=== PATIENT | male | born 1975 | race American Indian/Alaskan Native ===

== ENCOUNTER 2020-08-19 08:00 | Emergency (ER) | payer SELFPAY ==
--- NOTE | 2020-08-19 08:18 | Event Note ---
ED Screening Note Date of service: 08/19/20 Time: 08:14 ED Screening Note: This initial assessment/diagnostic orders/clinical plan/treatment(s) is/are subject to change based on patients health status, clinical progression and re- assessment by fellow clinical providers in the ED. Further treatment and workup at subsequent clinical providers discretion. Patient/guardian urged not to elope from the ED as their condition may be serious if not clinically assessed and managed. Initial orders include: Pt states he fell 2 weeks climbing over a fence. C/o of ongoing left arm pain. Pain worsens at night and with the cold weather. He also reports chest pain off and on x 2 weeks. He has hx of HTN he stopped taking BP meds 2 years ago. Resp easy and unlabored in no acute distress.
[2020-08-19 08:51] LABS: Basophils % (Auto) 0.4 % (0.0-1.8); Eosinophils # (Auto) 0.2 K/mm3 (0.0-0.4); Eosinophils % (Auto) 2.6 % (0.0-4.3); Lymphocytes % (Auto) 34.5 % (13.4-35.0); Mean Corpuscular HGB Conc 31 % (32-34); Mean Corpuscular Volume 86 fl (84-94); Monocytes # (Auto) 0.7 K/mm3 (0.0-0.8); Red Blood Count 6.07 M/mm3 (3.65-5.03); Red Cell Distribution Width 17.2 % (13.2-15.2)
--- NOTE | 2020-08-19 09:16 | Emergency Department Report ---
ED Chest Pain HPI - General Chief Complaint: Fall Stated Complaint: LFT SIDE PAIN Time Seen by Provider: 08/19/20 08:43 Source: patient Mode of arrival: Ambulatory Limitations: Physical Limitation - History of Present Illness Initial Comments: This is a 44-year-old -[place] male presents to the emergency department with complaint of left shoulder and upper arm pain that has been going on for the past 2 weeks since the patient had a fall. He was climbing over a fence and fell directly onto his left shoulder and arm. He says that he did not have any pain at that time but he began having severe throbbing pain 2 days later that has continued since. More recently he says that the pain radiates down the arm and recently he has been feeling some left upper leg pain as well. The patient has some difficulty moving the left arm secondary to pain. He denies any numbness or paresthesias, swelling, skin color change. The patient also says t hat he has been having some intermittent chest pains that he feels is radiation from his shoulder. He denies any current chest pain at the time of my examination. He has not taken anything for symptoms prior to presentation. He has a history of hypertension but admits to medication noncompliance as he did not like the way the medications made him feel. He does not have a primary care physician. He is an occasional marijuana smoker but denies any tobacco use. No recent travel or sick contacts at home. He denies any fever, nausea, vomiting, back pain, shortness of breath, headache, neck pain. Severity scale (0 -10): 10 - Related Data Previous Rx's Medication Instructions Recorded Last Taken Type HYDROcodone/APAP 5-325 [[place] 1 each PO Q6HR PRN #10 tablet 08/19/20 Unknown Rx 5/325] Allergies Allergy/AdvReac Type Severity Reaction Status Date / Time Penicillins Allergy Unknown Verified 08/19/20 08:03 Heart Score - HEART Score History: Slightly suspicious EKG: Normal Age: < 45 Risk factors: 1-2 risk factors Troponin: < normal limit HEART Score: 1 - Critical Actions Critical Actions: 0-3 pts:0.9-1.7%risk of adverse cardiac event.Candidate for discharge ED Review of Systems ROS: Stated complaint: LFT SIDE PAIN Other details as noted in HPI Comment: All other systems reviewed and negative Constitutional: denies: chills, fever Eyes: denies: eye pain, vision change ENT: denies: ear pain, throat pain Respiratory: denies: cough, shortness of breath Cardiovascular: chest pain (Intermittent, currently resolved). denies: edema Gastrointestinal: denies: abdominal pain, vomiting Genitourinary: denies: dysuria, discharge Musculoskeletal: arthralgia, myalgia. denies: back pain, joint swelling Skin: denies: rash, lesions Neurological: denies: numbness, paresthesias ED Past Medical Hx - Past Medical History Previous Medical History?: Yes Hx Hypertension: Yes (non compliant) - Surgical History Past Surgical History?: Yes Hx Cholecystectomy: Yes - Social History Smoking Status: Never Smoker Substance Use Type: Alcohol, Marijuana - Medications Home Medications: Home Medications Medication Instructions Recorded Confirmed Last Taken Type HYDROcodone/APAP 5-325 [[place] 1 each PO Q6HR PRN #10 tablet 08/19/20 Unknown Rx 5/325] ED Physical Exam - General Limitations: Physical Limitation - Other Other exam information: GENERAL: The patient is well-developed well-nourished. HENT: Normocephalic. Atraumatic. Patient has moist mucous membranes. EYES: Extraocular motions are intact. NECK: Supple. Trachea is midline. CHEST/LUNGS: Clear to auscultation. There is no respiratory distress noted. HEART/CARDIOVASCULAR: Regular. There is no tachycardia. There is no murmur. ABDOMEN: Abdomen is soft, nontender. Patient has normal bowel sounds. SKIN: Skin is warm and dry. NEURO: The patient is awake, alert, and oriented. The patient is cooperative. The patient has no focal neurologic deficits. Normal speech. MUSCULOSKELETAL: There is reproducible tenderness to palpation of the left shoulder and the proximal left thigh but no obvious deformities. The left shoulder pain increases with both passive and active range of motion. Radial pulse +2/4 and capillary refill less than 2 seconds to the affected left upper extremity. ED Course Vital Signs 08/19/20 08/19/20 08/19/20 08:05 08:08 08:49 Temperature 98.7 F Pulse Rate 81 81 Respiratory 20 16 Rate Blood Pressure 174/115 Blood Pressure 174/115 [Right] O2 Sat by Pulse 98 98 99 Oximetry 08/19/20 08/19/20 08:55 11:23 Temperature 98.2 F Pulse Rate 59 L Respiratory 16 Rate Blood Pressure Blood Pressure 153/103 [Right] O2 Sat by Pulse 98 Oximetry TRENT score - Trent Score Age > 65: (0) No Aspirin use within the Past 7 Days: (0) No 3 or more CAD Risk Factors: (0) No 2 or more Angina events in past 24 hrs: (1) Yes Known CAD with more than 50% Stenosis: (0) No Elevated Cardiac Markers: (0) No ST Deviation Greater than 0.5mm: (0) No TRENT Score: 1 ED Medical Decision Making - Lab Data Result diagrams: 08/19/20 08:27 08/19/20 09:36 - EKG Data -: EKG Interpreted by Me EKG shows normal: sinus rhythm, axis, intervals, QRS complexes, ST-T waves Rate: normal - EKG Data When compared to previous EKG there are: previous EKG unavailable Interpretation: normal EKG - Radiology Data Radiology results: image reviewed interpreted by me: X-ray of the left shoulder does not show any fracture, dislocation, foreign body, or any other acute process. Chest x-ray does not show any acute process. There are no pleural effusions, obvious pneumonia and there is no pneumothorax. No significant cardiomegaly. X-ray of the left femur does not show any fracture, dislocation, foreign body, or any other acute process. - Medical Decision Making This patient presents to the emergency department with the main complaint of left shoulder pain that has been going on for the past 2 weeks since he jumped a fence and fell onto his left shoulder. More recently the patient also has been having some left upper leg pain, and the patient admits to some intermittent left-sided chest pains that he feels is radiation from the shoulder. No chest pain at the time of my examination or during his ED course. There is reproducible left shoulder and left leg pain but no obvious deformities. An x-ray was done of the left shoulder that does not show any fracture, dislocation, or any other acute process. The same is true of the x- ray of the left femur. Chest x-ray does not show any pneumonia, pleural effusions, pneumothorax, focal consolidation, or any other acute process. EKG does not have any morphology consistent with ST elevation myocardial infarction, ischemia, or any dysrhythmia. Patient's labs have been unremarkable including CBC, metabolic panel and a negative troponin. The patient is low on the heart and TRENT score. For all these reasons the patient appears safe for discharge home at this time. He has been placed in a left upper extremity sling and given a prescription for pain medication. He will be given outpatient referrals for an orthopedist. Patient's contact information has been sent over to the [facility], and someone from their office should be contacting him shortly for close outpatient follow-up as part of our [facility] low risk chest pain [facility] Critical Care Time: No Critical care attestation.: If time is entered above; I have spent that time in minutes in the direct care of this critically ill patient, excluding procedure time. ED Disposition Clinical Impression: Intermittent chest pain, Left leg pain Left shoulder pain Qualifiers: Chronicity: unspecified Qualified Code(s): M25.512 - Pain in left shoulder Hypertension Qualifiers: Hypertension type: essential hypertension Qualified Code(s): I10 - Essential (primary) hypertension Disposition: TO HOME OR SELFCARE Is pt being admited?: No Condition: Stable Instructions: Shoulder Pain, Nonspecific Chest Pain, Adult, Musculoskeletal Pain, Hypertension, Adult, Chest Pain (ED), Hypertension (ED) Additional Instructions: Please follow-up with a primary care physician in the next few days. I am giving you a referral for to local orthopedic groups, Dr. Escudero and Is[facility], to follow-up regarding your left shoulder pain and left leg pain. I am sending your contact information over to the [facility], and someone from their office should be contacting you shortly for close outpatient follow-up regarding your intermittent chest pains. You have been prescribed a medication that is sedating and therefore should not be taken prior to driving, working, and responsible for children and in no way should be mixed with alcohol of any quantity. Return to the emergency department with any worsening of your symptoms, new or concerning symptoms not addressed during this current emergency department visit, or with any acute distress. Prescriptions: HYDROcodone/APAP 5-325 [[place] 5/325] 1 each PO Q6HR PRN #10 tablet PRN Reason: Pain Referrals: PRIMARY CARE, [Primary Care Provider] - 3-5 Days NAEEM ESCUDERO MD [Staff Physician] - 3-5 Days [facility] [Provider Group] - 3-5 Days [facility] [Provider Group] - 3-5 Days Time of Disposition: 11:04
[2020-08-19 10:26] LABS: BUN/Creatinine Ratio 14; Blood Urea Nitrogen 14 mg/dL (9-20); Calcium 8.9 mg/dL (8.4-10.2); Hemolysis Index 18
--- NOTE | 2020-08-19 10:49 | XRay Report ---
CHEST 2 VIEWS INDICATION / CLINICAL INFORMATION: Chest pain. COMPARISON: None available. FINDINGS: SUPPORT DEVICES: None. HEART / MEDIASTINUM: No significant abnormality. LUNGS / PLEURA: Clear lungs. No significant pleural effusion. No pneumothorax. ADDITIONAL FINDINGS: There is mild thoracic spondylosis. IMPRESSION: No acute abnormality of the chest. Signer Name: Emery Diana MD Signed: 08/19/2020 10:45 AM Workstation Name: [id number]
--- NOTE | 2020-08-19 10:49 | XRay Report ---
LEFT FEMUR 4 VIEWS INDICATION / CLINICAL INFORMATION: Left leg pain. COMPARISON: None available. FINDINGS: BONES and JOINT(S): No acute fracture or subluxation. No significant arthritis. SOFT TISSUES: No significant abnormality. ADDITIONAL FINDINGS: None. IMPRESSION: 1. No acute findings. Signer Name: Emery Diana MD Signed: 08/19/2020 10:45 AM Workstation Name: [id number]
--- NOTE | 2020-08-19 10:50 | XRay Report ---
LEFT SHOULDER 3 VIEWS INDICATION / CLINICAL INFORMATION: left shoulder pain COMPARISON: None available. FINDINGS: BONES and JOINT(S): No acute fracture or subluxation. No significant arthritis. SOFT TISSUES: No significant abnormality. ADDITIONAL FINDINGS: None. IMPRESSION: 1. No acute findings. Signer Name: Emery Diana MD Signed: 08/19/2020 10:45 AM Workstation Name: [id number]
[2020-08-19 11:01] LABS: Platelet Count 160 K/mm3 (140-440)
[2020-08-19 11:23] VITALS: BP 153/103
== END 2020-08-19 11:27 | disposition home or self-care (01) ==
LOC: ED 08:00
DX: M25.512 Pain in left shoulder (principal); M79.605 Pain in left leg; R07.9 Chest pain, unspecified; I10 Essential (primary) hypertension; F12.90 Cannabis use, unspecified, uncomplicated; Z88.0 Allergy status to penicillin; Z79.899 Other long term (current) drug therapy; Z90.49 Acquired absence of other specified parts of digestive tract
CPT/HCPCS: 36415; 71046; 80048; 84484; 85025; 93005